=== PATIENT | male | born 1995 | race Caucasian/White ===

== ENCOUNTER 2019-02-06 19:07 | Emergency (ER) | payer OTHER ==
[2019-02-06] MEDS ORDERED: ONDANSETRON 4 MG/2 ML VIAL IVP ONE (19:42)
[2019-02-06] MEDS ORDERED: NS 1,000 ML IV ONE ×2 (19:42→20:36)
[2019-02-06] MEDS ORDERED: HYDROmorphONE/DILAUDID 2 MG/ML INJ IVP ONE (19:42)
[2019-02-06] MEDS ORDERED: HYDROmorphONE/DILAUDID 1 MG/ML INJ ONE (19:45)
[2019-02-06 19:51] LABS: PLATELET COUNT 220 10^3/uL (150-400)
[2019-02-06] MEDS ORDERED: IOPAMIDOL (ISOVUE-300) 100 ML BTL ONE (19:56)
--- NOTE | 2019-02-06 21:22 | EDPHY ---
H & P Stated Complaint: severe abdominal pain that started today, vomited x3, diarrhea Time Seen by Provider: 02/06/19 19:22 HPI/ROS: Chief complaint: Abdominal pain History of present illness: This is a 23-year-old male who presents to the emergency department for evaluation of abdominal pain. Patient reports the onset of symptoms earlier today while skiing. He describes a diffuse, severe pain. Symptoms have been waxing and waning. He has developed nausea and vomiting. He did have an episode of loose stools but since then has had fecal urgency but constipation. No associated fever. No urinary symptoms. He has never had similar. He denies foreign travel. He denies recent antibiotic use. He does state friend had similar type symptoms recently. Review of systems: A 10 point review of systems was obtained and other than described above was negative - Medical/Surgical History Hx Asthma: No Hx Chronic Respiratory Disease: No Hx Diabetes: No Hx Cardiac Disease: No Hx Renal Disease: No Hx Cirrhosis: No Hx Alcoholism: No Hx HIV/AIDS: No Hx Splenectomy or Spleen Trauma: No Other PMH: knee scope, heavy marajuna smoker - Social History Smoking Status: Current every day smoker - Physical Exam Exam: General Appearance: Alert, appears uncomfortable. Eyes: Pupils equal and round no pallor or injection. ENT, Mouth: Mucous membranes moist. Respiratory: There are no retractions, lungs are clear to auscultation. Cardiovascular: Regular rate and rhythm. Gastrointestinal: Abdomen is soft and non tender, no masses, bowel sounds normal. Neurological: Alert and oriented x4. Skin: Warm and dry, no rashes. Musculoskeletal: Extremities are symmetrical, full range of motion. Psychiatric: Patient is oriented X 3, there is no agitation. Constitutional: Initial Vital Signs Temperature (C) 36.8 C 02/06/19 19:17 Heart Rate 74 02/06/19 19:17 Respiratory Rate 16 02/06/19 19:17 Blood Pressure 105/78 02/06/19 19:17 O2 Sat (%) 96 02/06/19 19:17 O2 Delivery Mode Room Air Allergies/Adverse Reactions: No Known Allergies Allergy (Verified 02/06/19 19:17) Home Medications: Medication Instructions Recorded Miscellaneous Medical Supply [NO 1 ea MISC AD 02/28/13 HOME MEDS] Medical Decision Making - Diagnostics Imaging Results: Imaging Impressions Abdomen CT 02/06/19 19:43 Impression: 1. Mild colitis of the descending colon. Differential diagnosis includes infectious and inflammatory etiologies. No diverticulosis. 2. No bowel obstruction, free fluid, abscess, or appendicitis. Findings discussed with Emergency Department Physician Lathe Scalper Operator, Ewelina Liao, on February 06, 2019 at 2039. Imaging: Discussed imaging studies w/ grinder set up operator centerless Radiologist ED Course/Re-evaluation: Patient is discussed with my secondary supervising physician Dr. Tim Barkley. Patient presents to the emergency department for abdominal pain. Ultimately his workup reveals a descending colitis. Pain has been controlled. He is tolerating oral challenges. I have consulted with on-call gastroenterology, Dr. Walker Price. He did recommend stool studies. Patient is unable to give stool sample. Patient can be discharged home. Home care is discussed including the use of Zofran. He is to follow up with GI for continued evaluation and care. Strict return precautions were given. The patient voiced understanding and agreement with plan. Differential Diagnosis: Included but not limited to gastritis, gastroenteritis, biliary tract disease, pancreatitis, colitis, appendicitis, bowel obstruction, urinary tract pathology such as stone - Data Points Laboratory Results: Laboratory Results 02/06/19 19:38 02/06/19 19:38 02/06/19 02/06/19 02/06/19 21:15 19:38 19:38 WBC 12.35 10^3/uL H 10^3/uL (3.80-9.50) RBC 5.29 10^6/uL 10^6/uL (4.40-6.38) Hgb 16.1 g/dL g/dL (13.7-17.5) Hct 43.6 % % (40.0-51.0) MCV 82.4 fL fL (81.5-99.8) MCH 30.4 pg pg (27.9-34.1) MCHC 36.9 g/dL H g/dL (32.4-36.7) RDW 11.8 % % (11.5-15.2) Plt Count 220 10^3/uL 10^3/uL (150-400) MPV 10.5 fL fL (8.7-11.7) Neut % (Auto) 85.0 % H % (39.3-74.2) Lymph % (Auto) 8.0 % L % (15.0-45.0) [place] % (Auto) 6.5 % % (4.5-13.0) Eos % (Auto) 0.0 % L % (0.6-7.6) Baso % (Auto) 0.3 % % (0.3-1.7) Nucleat RBC Rel Count 0.0 % % (0.0-0.2) Absolute Neuts (auto) 10.49 10^3/uL H 10^3/uL (1.70-6.50) Absolute Lymphs (auto) 0.99 10^3/uL L 10^3/uL (1.00-3.00) Absolute Monos (auto) 0.80 10^3/uL 10^3/uL (0.30-0.80) Absolute Eos (auto) 0.00 10^3/uL L 10^3/uL (0.03-0.40) Absolute Basos (auto) 0.04 10^3/uL 10^3/uL (0.02-0.10) Absolute Nucleated RBC 0.00 10^3/uL 10^3/uL (0-0.01) Immature Gran % 0.2 % % (0.0-1.1) Immature Gran # 0.03 10^3/uL 10^3/uL (0.00-0.10) Sodium 135 mEq/L mEq/L (135-145) Potassium 3.9 mEq/L mEq/L (3.5-5.2) Chloride 100 mEq/L mEq/L (97-110) Carbon Dioxide 22 mEq/l mEq/l (22-31) Anion Gap 13 mEq/L mEq/L (6-14) BUN 16 mg/dL mg/dL (7-23) Creatinine 0.8 mg/dL mg/dL (0.7-1.3) Estimated GFR > 60 Glucose 103 mg/dL H mg/dL (70-100) Calcium 10.5 mg/dL H mg/dL (8.5-10.4) Total Bilirubin 1.2 mg/dL mg/dL (0.1-1.4) Conjugated Bilirubin 0.4 mg/dL mg/dL (0.0-0.5) Unconjugated Bilirubin 0.8 mg/dL mg/dL (0.0-1.1) AST 31 IU/L IU/L (17-59) ALT 41 IU/L IU/L (21-72) Alkaline Phosphatase 81 IU/L IU/L (38-126) Total Protein 8.3 g/dL H g/dL (6.3-8.2) Albumin 5.2 g/dL H g/dL (3.5-5.0) Lipase 79 IU/L IU/L (23-300) Urine Color PALE YELLOW Urine Appearance CLEAR Urine pH 8.0 H (5.0-7.5) Ur Specific [place] > 1.035 H (1.002-1.030) Urine Protein NEGATIVE (NEGATIVE) Urine Ketones 1+ H (NEGATIVE) Urine Blood NEGATIVE (NEGATIVE) Urine Nitrate NEGATIVE (NEGATIVE) Urine Bilirubin NEGATIVE (NEGATIVE) Urine Urobilinogen NEGATIVE EU EU (0.2-1.0) Ur Leukocyte Esterase NEGATIVE (NEGATIVE) Urine RBC 1-3 /hpf /hpf (0-3) Urine WBC 1-3 /hpf /hpf (0-3) Ur Epithelial Cells NONE SEEN /lpf /lpf (NONE-1+) Urine Glucose NEGATIVE (NEGATIVE) Medications Given: Discontinued Medications Hydromorphone HCl (Dilaudid) 0.5 mg IVP EDNOW ONE Stop: 02/06/19 19:43 Last Admin: 02/06/19 19:48 Dose: 0.5 mg Sodium Chloride (Ns) 1,000 mls @ 0 mls/hr IV EDNOW ONE; Wide Open PRN Reason: Protocol Stop: 02/06/19 19:43 Last Admin: 02/06/19 19:47 Dose: 1,000 mls Sodium Chloride (Ns) 1,000 mls @ 0 mls/hr IV EDNOW ONE; Wide Open PRN Reason: Protocol Stop: 02/06/19 20:37 Last Admin: 02/06/19 20:39 Dose: 1,000 mls Ondansetron HCl (Zofran) 4 mg IVP EDNOW ONE Stop: 02/06/19 19:43 Last Admin: 02/06/19 19:48 Dose: 4 mg Ondansetron HCl (Zofran Odt 4 Mg Prepack#2) 1 btl TAKEHOME EDNOW ONE Stop: 02/06/19 21:25 Last Admin: 02/06/19 21:30 Dose: 1 btl Departure - Departure Disposition: Home, Routine, Self-Care Clinical Impression: Colitis Condition: Good Instructions: Ondansetron (By mouth), Colitis (ED) Additional Instructions: Follow-up with Gastroenterology for continued evaluation and care Use Zofran as directed as needed for nausea and vomiting If symptoms worsen or new symptoms develop return to the emergency room for recheck Referrals: NONE *PRIMARY CARE P,. [Primary Care Provider] - As per Instructions Walker Price MD [Medical Doctor] - As per Instructions Devin Davis MD [Medical Doctor] - As per Instructions Stand Alone Forms: Work Excuse
[2019-02-06] MEDS ORDERED: ONDANSETRON 4MG PREPACK#2 BTL TAKEHOME ONE (21:24)
[2019-02-06 21:38] VITALS: BP 112/63
== END 2019-02-06 21:46 | disposition home or self-care (01) ==
DX: K52.9 Noninfective gastroenteritis and colitis, unspecified (principal); E86.9 Volume depletion, unspecified; F17.200 Nicotine dependence, unspecified, uncomplicated
CPT/HCPCS: 96374; J1170; J2405; Q9967

== ENCOUNTER 2019-02-07 12:17 | Observation (INO) | payer OTHER ==
--- NOTE | 2019-02-07 12:44 | EDPHY ---
H & P Stated Complaint: ABD pain Time Seen by Provider: 02/07/19 12:27 HPI/ROS: CHIEF COMPLAINT: Worsening abdominal pain with new onset hematochezia HISTORY OF PRESENT ILLNESS: 23-year-old male generally healthy seen emergency department last night for complaints of abdominal pain, had CT imaging showing positive colitis of the descending colon. No hematochezia reported yesterday. He went home, notes that throughout the night had progressive abdominal pain and cramping with development of bright red blood per rectum which continues. He denies: Vomiting, headache, chest pain, testicular pain. PRIMARY CARE PROVIDER: None REVIEW OF SYSTEMS: 10 systems reviewed and negative with the exception of the elements mentioned in the history of present illness PAST MEDICAL & SURGICAL HISTORY: No pertinent medical or surgical history SOCIAL HISTORY: Nonsmoker PHYSICAL EXAM (Prior to examination, patient consented to physical exam, hands were washed and my usual and customary physical exam procedures followed) 1) GENERAL: Well-developed, well-nourished, alert and oriented. Appears to be in no acute distress. 2) HEAD: Normocephalic, atraumatic 3) HEENT: Pupils equal, round, reactive to light bilaterally. Sclera anicteric. Nasopharynx, oropharynx, clear, no lesions. Dry mucous membranes. 4) NECK: Full range of motion, no meningeal signs. 5) LUNGS: Clear auscultation bilaterally, no wheezes, no rhonchi, no retractions. 6) HEART: Regular rate and rhythm, no murmur, no heave, no gallop. 7) ABDOMEN: No guarding, no rebound, no focal tenderness, negative McBurney's, negative Martinez's, negative Rovsing's, negative peritoneal sign, 8) MUSCULOSKELETAL: Moving all extremities, no focal areas of tenderness, no obvious trauma. No peripheral edema or discoloration. 9) BACK: No CVA tenderness, no midline vertebral tenderness, no fluctuance, no step-off, no obvious trauma, no visual or palpable abnormality. 10) SKIN: No rash, no petechiae. 11) : Dried bright red blood in the perianal region. Digital rectal examination is positive for bright red blood on digit. DIFFERENTIAL DIAGNOSIS: In no particular order including but not limited to inflammatory colitis, infectious colitis, GI bleed - Personal History Current Tetanus/Diphtheria Vaccine: Yes Current Tetanus Diphtheria and Acellular Pertussis (TDAP): Yes - Medical/Surgical History Hx Asthma: No Hx Chronic Respiratory Disease: No Hx Diabetes: No Hx Cardiac Disease: No Hx Renal Disease: No Hx Cirrhosis: No Hx Alcoholism: No Hx HIV/AIDS: No Hx Splenectomy or Spleen Trauma: No Other PMH: knee scope, heavy marajuna smoker - Social History Smoking Status: Current every day smoker Constitutional: Initial Vital Signs Temperature (C) 36.7 C 02/07/19 12:29 Heart Rate 93 02/07/19 12:29 Respiratory Rate 16 02/07/19 12:29 Blood Pressure 125/82 H 02/07/19 12:29 O2 Sat (%) 94 02/07/19 12:29 O2 Delivery Mode Room Air Allergies/Adverse Reactions: No Known Allergies Allergy (Verified 02/07/19 12:25) Home Medications: Medication Instructions Recorded Miscellaneous Medical Supply [NO 1 ea MISC AD 02/28/13 HOME MEDS] Medical Decision Making ED Course/Re-evaluation: 12:46 p.m.: I have reviewed this patient's old medical records. He has new onset hematochezia with bright red blood on examination as well as progressive abdominal pain. Will obtain laboratory studies and plan on more than likely hospital admission. Care of patient under supervision of secondary supervising physician Dr Dmitry Barone with whom I discussed case. 1:00 p.m.: Consultation with hospitalist, Valerie, admit to Dr. Montoya. Will consult with GI. 1:10 p.m.: Consultation with Dr. Walker Price Gastroenterology who will evaluate patient in the ER - Data Points Laboratory Results: Laboratory Results 02/07/19 12:42 02/07/19 02/07/19 02/07/19 12:42 12:42 12:42 WBC 7.04 10^3/uL 10^3/uL (3.80-9.50) RBC 5.21 10^6/uL 10^6/uL (4.40-6.38) Hgb 15.8 g/dL g/dL (13.7-17.5) Hct 45.9 % % (40.0-51.0) MCV 88.1 fL fL (81.5-99.8) MCH 30.3 pg pg (27.9-34.1) MCHC 34.4 g/dL g/dL (32.4-36.7) RDW 12.0 % % (11.5-15.2) Plt Count 192 10^3/uL 10^3/uL (150-400) MPV 10.6 fL fL (8.7-11.7) Neut % (Auto) 68.1 % % (39.3-74.2) Lymph % (Auto) 20.6 % % (15.0-45.0) [place] % (Auto) 10.2 % % (4.5-13.0) Eos % (Auto) 0.6 % % (0.6-7.6) Baso % (Auto) 0.4 % % (0.3-1.7) Nucleat RBC Rel Count 0.0 % % (0.0-0.2) Absolute Neuts (auto) 4.79 10^3/uL 10^3/uL (1.70-6.50) Absolute Lymphs (auto) 1.45 10^3/uL 10^3/uL (1.00-3.00) Absolute Monos (auto) 0.72 10^3/uL 10^3/uL (0.30-0.80) Absolute Eos (auto) 0.04 10^3/uL 10^3/uL (0.03-0.40) Absolute Basos (auto) 0.03 10^3/uL 10^3/uL (0.02-0.10) Absolute Nucleated RBC 0.00 10^3/uL 10^3/uL (0-0.01) Immature Gran % 0.1 % % (0.0-1.1) Immature Gran # 0.01 10^3/uL 10^3/uL (0.00-0.10) PT 13.9 SEC SEC (12.0-15.0) INR 1.11 (0.83-1.16) APTT 31.5 SEC SEC (23.0-38.0) Sodium Pending Potassium Pending Chloride Pending Carbon Dioxide Pending Anion Gap Pending BUN Pending Creatinine Pending Estimated GFR Pending Glucose Pending Calcium Pending Total Bilirubin Pending Conjugated Bilirubin Pending Unconjugated Bilirubin Pending AST Pending ALT Pending Alkaline Phosphatase Pending Total Protein Pending Albumin Pending Lipase Pending Stool Occult Bld Scrn 02/07/19 12:35 WBC RBC Hgb Hct MCV MCH MCHC RDW Plt Count MPV Neut % (Auto) Lymph % (Auto) [place] % (Auto) Eos % (Auto) Baso % (Auto) Nucleat RBC Rel Count Absolute Neuts (auto) Absolute Lymphs (auto) Absolute Monos (auto) Absolute Eos (auto) Absolute Basos (auto) Absolute Nucleated RBC Immature Gran % Immature Gran # PT INR APTT Sodium Potassium Chloride Carbon Dioxide Anion Gap BUN Creatinine Estimated GFR Glucose Calcium Total Bilirubin Conjugated Bilirubin Unconjugated Bilirubin AST ALT Alkaline Phosphatase Total Protein Albumin Lipase Stool Occult Bld Scrn POSITIVE H (NEGATIVE) Departure - Departure
[2019-02-07 12:54] LABS: PLATELET COUNT 192 10^3/uL (150-400)
[2019-02-07] MEDS ORDERED: NS 1,000 ML IV ONE (13:01)
[2019-02-07 13:04] LABS: INR 1.11 (0.83-1.16); PROTIME(PATIENT) 13.9 SEC (12.0-15.0)
[2019-02-07] MEDS ORDERED: ZOLPIDEM TARTRATE 5 MG TAB PO PRN (13:12)
[2019-02-07] MEDS ORDERED: ONDANSETRON 4 MG/2 ML VIAL IVP PRN (13:12)
[2019-02-07] MEDS ORDERED: ACETAMINOPHEN 325 MG TAB PO PRN (13:12)
[2019-02-07] MEDS ORDERED: HYDROmorphONE/DILAUDID 1 MG/ML INJ IVP ONE ×2 (13:14→13:17)
[2019-02-07] MEDS ORDERED: PANTOPRAZOLE SODIUM 40 MG VIAL IVP SCH (13:15)
[2019-02-07] MEDS ORDERED: ONDANSETRON 4 MG/2 ML VIAL IVP ONE (13:17)
--- NOTE | 2019-02-07 13:18 | PDGENHP ---
History and Physical History and Physical: CC: Hematemesis HISTORY: This patient initially presented to the ER yesterday complaining of diffuse abdominal pain. There had been some mild vomiting and 1 episode of loose stools as well. There was no blood no fever. He had had a CT scan done in the ER yesterday reportedly showing some descending colonic edema. He was discharged home from the ER with a prescription for Zofran. At this point he comes back in to the hospital emergency room complaining of ongoing abdominal pain, primarily L sided, and some hematochezia. Describes having had 1 small formed bowel movement this morning followed immediately by passage of bright red blood. He denies any anal or rectal pain. ROS: A comprehensive 10 system review revealed no other significant findings PAST MEDICAL HISTORY: No significant past medical history other than a knee arthroscopy FAMILY MEDICAL HISTORY: Father with diabetes, no history of abdominal or digestive illnesses in the family SOCIAL HISTORY: Marijuana use MEDICATIONS: The patients list has been reconciled by our clinical pharmacist in the EMR. I have reviewed the list and ordered appropriate medicines. 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 The hypercalcemia has resolved at this time Electrolytes, renal function, liver enzymes and bilirubin are all normal and lipase was normal RADIOLOGY STUDIES: I reviewed the images from CT scan of the abdomen done yesterday in the ER. I agree that there does appear to probably be some thickening of the wall of the large bowel in the descending colon. It did not see any other concerning abnormalities in the study 12 LEAD EKG: ASSESSMENT: * Acute descending colitis with some hematochezia * Ongoing abdominal pain PLANS: * Will place on observation status here to begin with though if has ongoing bleeding may need to changed inpatient * IV hydration * Follow blood counts * GI pathogen panel * I will review the case with Dr. Walker Price I have reviewed the patient's past medical records as part of this assessment, including previous emergency room visits from yesterday and few years ago
[2019-02-07] MEDS ORDERED: HYDROmorphONE/DILAUDID 1 MG/ML INJ ONE (13:24)
[2019-02-07] MEDS: NS 1,000 ML IV SCH (14:45)
--- NOTE | 2019-02-07 14:59 | GCON ---
[f rep st] CONSULTATION CHIEF COMPLAINT: Hematochezia. HISTORY OF PRESENT ILLNESS: I have been asked to see this very pleasant 23-year -old gentleman in consultation by Dr. Montoya for evaluation of hematochezia and colitis. The patient has no other significant medical history. He does report occasional GI upset with lactose. Otherwise no significant medical history. He presented to the emergency room yesterday initially with complaint of diffuse abdominal pain. He did have 1 episode of vomiting with some loose stool and diarrhea. He denies any fevers or chills. He had been skiing in [facility]. He felt unwell. He was having crampy abdominal pain and had some diarrhea. 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 He presented to the emergency department last night, given pain medicine, discharged home with GI followup. He felt unwell throughout the night and had episodes of diarrhea and some hematochezia. Described a small amount of blood per rectum. He does have persistent nausea. CT scan done in the emergency department last night revealed mild colitis of the descending colon consistent with either infectious etiology or inflammatory etiologies. There was no evidence of diverticulosis or appendicitis. He was hemodynamically stable with normal labs, normal serum chemistries and normal CBC. Patient is being admitted to the hospital for further management. Asked to see patient for further evaluation. PAST MEDICAL HISTORY: Negative. PAST SURGICAL HISTORY: Negative other than a previous knee arthroscopy. MEDICATIONS: Prior to admission, none. FAMILY HISTORY: Noncontributory as it pertains to chief complaint. SOCIAL HISTORY: Remarkable for marijuana use. Otherwise, nonsmoker. ALLERGIES: He has no known drug allergies. REVIEW OF SYSTEMS: Negative for 10 systems other than mentioned in HPI. PHYSICAL EXAM: VITAL SIGNS: 110/66, heart rate of 55, respiratory rate 16, 93 % sat on room air, 36.7 temp. GENERAL: Very pleasant gentleman lying on a stretcher, in no acute distress. HEENT: Normocephalic, atraumatic. EOMI. NECK: Supple. No cervical adenopathy. No thyromegaly. Mucous membranes moist. LUNGS: Clear. CARDIAC: Normal S1, S2 without murmur. ABDOMEN: Benign, soft. No hepatosplenomegaly. Mild tenderness to palpation left abdomen. EXTREMITIES: Without clubbing, cyanosis, edema. NEURO: Nonfocal. SKIN: Warm and dry. PSYCH: Alert and oriented x3 with normal affect. LABORATORY DATA: White count of 7.04, hemoglobin 15.8, hematocrit 45.9. Serum chemistries: Serum sodium 139, potassium 3.3, chloride 103, CO2 26, BUN of 12, blood sugar of 89. Liver function tests normal with a total bilirubin of 1.2. AST of 23, ALT of 35, alkaline phosphatase 63, lipase of 86. IMPRESSION: 23-year-old male with acute onset of crampy abdominal pain, diarrhea, hematochezia. No prior history of any GI symptoms. His presentation is somewhat more consistent with an acute infectious etiology. RECOMMENDATIONS: Patient admitted to the hospital. IV hydration. Stool studies for enteric pathogens to include salmonella, shigella, Campylobacter and E coli. We will follow with you. Thank you for letting me participate in the care of this patient. /[id number]/MODL MTDD
[2019-02-07] MEDS ORDERED: MELATONIN 3 MG TAB PO SCH (21:00)
[2019-02-08 05:16] LABS: PLATELET COUNT 158 10^3/uL (150-400)
--- NOTE | 2019-02-08 12:24 | HOSPPROG ---
Hospitalist Progress Note Assessment/Plan: 23 yo M w fannie viral colitis colitis: no bm suggests resolution dog exposure: unlikely zoonotic infection abd pain: improved dispo: obs Subjective: eating. no bm Objective: Vital Signs Temp Pulse Resp BP Pulse Ox 36.9 C 63 16 103/68 96 02/08/19 07:18 02/08/19 07:18 02/08/19 07:18 02/08/19 07:18 02/08/19 07:18 Laboratory Results 02/08/19 05:05 PT 13.9 SEC (12.0-15.0) 02/07/19 12:42 INR 1.11 (0.83-1.16) 02/07/19 12:42 - Physical Exam Constitutional: no apparent distress, appears nourished Eyes: PERRL, anicteric sclera Ears, Nose, Mouth, Throat: moist mucous membranes, hearing normal Cardiovascular: regular rate and rhythym, no murmur, rub, or gallop Respiratory: no respiratory distress, no rales or rhonchi Gastrointestinal: normoactive bowel sounds, soft, non-tender abdomen Genitourinary: No post in urethra Skin: warm, normal color Musculoskeletal: full muscle strength Neurologic: AAOx3
--- NOTE | 2019-02-08 13:02 | ASMTCMCOM ---
CM Note CM Note Notes: Pt admitted with hematochezia and colitis. Current plan of care is IVF and monitoring. Anticipate he will d/c home with no CM needs when medically cleared however CM will continue to follow for any change in needs. D/C plan: anticipate home independent Date Signed: 02/08/2019 12:59 PM Electronically Signed By:BENJAMIN Trujillo
[2019-02-08] MEDS: NS 1,000 ML IV SCH (13:48)
[2019-02-08 15:43] VITALS: BP 111/67
--- NOTE | 2019-02-08 17:07 | GDS ---
[f rep st] DISCHARGE SUMMARY DISCHARGE DIAGNOSIS: Colitis. Please see admission history and physical. Patient presented with colitis. He was seen in the ER a couple times in 24 hours. He was admitted. CT scan showed descending colon colitis. Seen by rosalind HARRIS lt this was likely infectious. He actually had no further bowel movements while here, did not have e vidence of blood loss. He does not have a family history of inflammatory bowel disease. He has not had extraintestinal symp toms to suggest that this is going on. He is tolerating an oral diet and is discharged home today. This discharge occurred late in the day because this is when he ultimately had passed a p.o. challeng e and was able to go. /[id number]/MODL
== END 2019-02-08 17:11 | disposition home or self-care (01) ==
LOC: F3E 14:04
PROVIDERS: ADMIT Internal Medicine; ATTEND Internal Medicine
DX: A09 Infectious gastroenteritis and colitis, unspecified (principal); K92.1 Melena; F17.210 Nicotine dependence, cigarettes, uncomplicated
CPT/HCPCS: 96374; 96376; 99285; G0378; J1170